=== PATIENT | female | born 1960 | race Caucasian/White ===

== ENCOUNTER → 2017-01-02 | Outpatient (CLI) | payer OTHER ==
[~2017-01-02] MED LIST: ASPCH81X PO; ATOR-24 PO; CHOL1000 PO; GLIM4TAB PO; LISI-725 PO; LORA10TA51 PO; NIAC500T11 PO; OMEG10007 PO; PRLSR20 PO; SITA100T3 PO; VENL150C PO
[2017-01-02 12:49] LABS: ESTIMATED AVERAGE GLUCOSE 177 mg/dl; HA1C FLAG Normal (Normal)
== END | disposition home or self-care (01) ==
LOC: C.LABPVFM 09:23
PROVIDERS: ATTEND Family Medicine
DX: E11.9 Type 2 diabetes mellitus without complications (principal)

== ENCOUNTER → 2017-02-25 | Outpatient (CLI) | payer OTHER ==
--- NOTE | 2017-02-25 16:30 | DIAGNOSTIC IMAGING REPORT ---
LUMBAR SPINE 2 OR 3 VIEWS CLINICAL HISTORY: LUMBAR PAIN WITH RADIATION DOWN BOTH LEGS pain COMPARISON STUDY: 06/29/2013 FINDINGS: Normal study. Vertebral body stature is normal. Disc spaces are well-preserved. IMPRESSION: Negative study Electronically signed by: Ervin Charles M.D. 02/25/2017 4:29 PM Dictated Date/Time: 02/25/2017 4:28 PM
== END | disposition home or self-care (01) ==
LOC: C.RAD 07:17
PROVIDERS: ATTEND Family Medicine
DX: M54.5 Low back pain (principal)

== ENCOUNTER → 2017-04-08 | Outpatient (CLI) | payer OTHER ==
[2017-04-08 13:17] LABS: ESTIMATED AVERAGE GLUCOSE 189 mg/dl; HA1C FLAG Normal (Normal)
== END | disposition home or self-care (01) ==
LOC: C.LABPVFM 08:47
PROVIDERS: ATTEND Family Medicine
DX: E11.9 Type 2 diabetes mellitus without complications (principal)

== ENCOUNTER → 2017-04-13 | Outpatient (CLI) | payer OTHER ==
[2017-04-13 13:34] LABS: CHOLESTEROL/HDL RATIO 4.4
== END | disposition home or self-care (01) ==
LOC: C.LABPVFM 08:18
PROVIDERS: ATTEND Family Medicine
DX: Z11.59 Encounter for screening for other viral diseases (principal); Z13.220 Encounter for screening for lipoid disorders

== ENCOUNTER → 2017-05-05 | Outpatient (CLI) | payer OTHER | END | disposition home or self-care (01) | LOC: C.MAMM 12:37 | PROVIDERS: ATTEND Family Medicine | DX: M85.851 Other specified disorders of bone density and structure, right thigh (principal); M85.852 Other specified disorders of bone density and structure, left thigh; R29.890 Loss of height ==

== ENCOUNTER → 2017-05-08 | Outpatient (CLI) | payer OTHER ==
--- NOTE | 2017-05-08 16:01 | MAMMOGRAPHY REPORT ---
BILATERAL DIGITAL SCREENING MAMMOGRAM TOMOSYNTHESIS WITH CAD: 05/08/2017 CLINICAL HISTORY: Routine screening. Patient has no complaints. TECHNIQUE: Breast tomosynthesis in addition to standard 2D mammography was performed. Current study was also evaluated with a Computer Aided Detection (CAD) system. COMPARISON: Comparison is made to exams dated: 04/25/2016 mammogram, 01/18/2015 mammogram, 08/25/2014 m ammogram, 01/12/2014 mammogram, and 01/07/2013 mammogram - [facility]. BREAST COMPOSITION: The tissue of both breasts is heterogeneously dense, which may obscure small mas ses. FINDINGS: No suspicious masses, calcifications, or areas of architectural distortion are noted in ei ther breast. There has been no significant interval change compared to prior exams. Scattered bilater al benign-appearing calcifications are not significantly changed. IMPRESSION: ACR BI-RADS CATEGORY 2: BENIGN There is no mammographic evidence of malignancy. A 1 year screening mammogram is recommended. The pa tient will receive written notification of the results. Approximately 10% of breast cancers are not detected with mammography. A negative mammographic report should not delay biopsy if a clinically suggestive mass is present. Katey Rolon M.D. /:05/08/2017 15:52:09 Doctor Of Naprapathy: Zenaida RUVALCABA(R)(M), [facility] letter sent: Normal 1/2 BI-RADS Code: ACR BI-RADS Category 2: Benign
== END | disposition home or self-care (01) ==
LOC: C.MAMM 08:16
PROVIDERS: ATTEND Family Medicine
DX: Z12.31 Encounter for screening mammogram for malignant neoplasm of breast (principal)

== ENCOUNTER → 2017-07-20 | Outpatient (CLI) | payer OTHER ==
[2017-07-20 13:12] LABS: ESTIMATED AVERAGE GLUCOSE 197 mg/dl; HA1C FLAG Normal (Normal)
== END | disposition home or self-care (01) ==
LOC: C.LABPVFM 09:59
PROVIDERS: ATTEND Family Medicine
DX: E11.9 Type 2 diabetes mellitus without complications (principal)

== ENCOUNTER → 2017-10-17 | Outpatient (CLI) | payer OTHER ==
[2017-10-17 13:18] LABS: CREATININE RANDOM URINE 66.7 mg/dl
[2017-10-17 13:22] LABS: BLOOD UREA NITROGEN 13 mg/dl (7-18); BUN/CREATININE RATIO 14.5 (10-20); CALCIUM 9.1 mg/dl (8.5-10.1); CARBON DIOXIDE 31 mmol/L (21-32); CHLORIDE 101 mmol/L (98-107); CREATININE 0.91 mg/dl (0.60-1.20); GLUCOSE 140 mg/dl (70-99); POTASSIUM 3.8 mmol/L (3.5-5.1); SODIUM 137 mmol/L (136-145)
[2017-10-17 13:28] LABS: ESTIMATED AVERAGE GLUCOSE 146 mg/dl; HA1C FLAG Normal (Normal)
[2017-10-17 13:29] LABS: RATIO 8.2 mcg/mg (0-30.0)
== END | disposition home or self-care (01) ==
LOC: C.LABPVFM 09:51
PROVIDERS: ATTEND Family Medicine
DX: E11.9 Type 2 diabetes mellitus without complications (principal)

== ENCOUNTER → 2017-10-26 | Outpatient (CLI) | payer OTHER ==
--- NOTE | 2017-10-26 09:35 | DIAGNOSTIC IMAGING REPORT ---
ABDOMEN LIMITED (US) HISTORY: 57 years-old Female SPELNIC CYST follow-up study to assess a splenic cyst COMPARISON: Abdominal ultrasound 07/18/2016 and 07/06/2015, CT 09/23/2014. TECHNIQUE: Multiple real-time sonographic images of the abdominal left upper quadrant were obtained assessing grayscale appearance, color and spectral flow FINDINGS: The spleen measures 11.0 cm in length. Normal arterial waveforms are seen within the splenic artery. The splenic artery and vein are patent. Cyst of the mid spleen is again seen, 3.9 x 3.9 x 3.6 cm, previously measuring 4.1 x 4.5 x 4.0 cm on study dated 07/18/2016. Previously noted punctate splenic calcifications suggesting granulomatous disease seen on CT study are not definitively seen. IMPRESSION: Decreased size of cystic lesion of the mid spleen measuring up to 3.9 cm, previously measuring up to 4.5 cm. Findings suggest benign etiology. The above report was generated using voice recognition software. It may contain grammatical, syntax or spelling errors. Electronically signed by: Derick Balbuena M.D. 10/26/2017 9:33 AM Dictated Date/Time: 10/26/2017 9:29 AM
== END | disposition home or self-care (01) ==
LOC: C.ULTR 09:01
PROVIDERS: ATTEND Surgery
DX: D73.4 Cyst of spleen (principal)

== ENCOUNTER → 2017-11-24 | Outpatient (CLI) | payer OTHER ==
--- NOTE | 2017-11-24 11:31 | DIAGNOSTIC IMAGING REPORT ---
LUMBAR SPINE 5 VIEWS HISTORY: LUMBAR PAIN WITH RADIATION DOWN LEGS COMPARISON: Lumbar spine 02/25/2017. FINDINGS: There is no fracture. No subluxation. Disc spaces are preserved. Mild facet degenerative changes seen within the lower lumbar spine. IMPRESSION: No fracture or subluxation within the lumbar spine. 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 Electronically signed by: Braxton Hobson M.D. 11/24/2017 11:30 AM Dictated Date/Time: 11/24/2017 11:27 AM
== END | disposition home or self-care (01) ==
LOC: C.RADPV 11:00
PROVIDERS: ATTEND Family Medicine
DX: M54.5 Low back pain (principal); M47.896 Other spondylosis, lumbar region

== ENCOUNTER 2023-04-29 06:01 | Inpatient (IN) ==
--- NOTE | 2023-04-03 13:53 | PAT Medication Instructions ---
Medication Instructions Date of Service April 03, 2023 Home Medications Medication Instructions Recorded diclofenac sodium 75 mg 75 mg PO BID #60 tabs 01/12/23 tablet,delayed release pregabalin 150 mg capsule 150 mg PO TID #90 caps 01/28/23 aspirin 81 mg tablet,delayed release 81 mg PO QAM cholecalciferol (vitamin D3) 25 mcg (1,000 unit) capsule 25 mcg PO HS loratadine 10 mg tablet (Claritin) 10 mg PO HS niacin 500 mg tablet 500 mg PO HS omega-3 fatty acids 1,000 mg capsule 1,000 mg PO HS pantoprazole 40 mg granules delayed-release for susp in packet (Protonix) 40 mg PO QAM insulin detemir U-100 100 unit/mL (3 mL) subcutaneous pen (Levemir FlexTouch U- 100 Insulin) 30 unit subcut HS semaglutide 0.25 mg or 0.5 mg (2 mg/1.5 mL) subcutaneous pen injector (Ozempic) 0.5 mg subcut WK rosuvastatin 40 mg tablet (Crestor) 40 mg PO HS duloxetine 60 mg capsule,delayed release (Cymbalta) 60 mg PO QAM venlafaxine 75 mg capsule,extended release 24 hr (Effexor XR) 75 mg PO QAM diclofenac sodium 75 mg tablet,delayed release 75 mg PO BID pregabalin 150 mg capsule 150 mg PO TID lisinopril 2.5 mg tablet 2.5 mg PO QAM Continue as directed semaglutide 0.25 mg or 0.5 mg (2 mg/1.5 mL) subcutaneous pen injector (Ozempic) 0.5 mg subcut WK ASK your surgeon for instructions diclofenac sodium 75 mg tablet,delayed release 75 mg PO BID STOP taking 2 weeks before surgery omega-3 fatty acids 1,000 mg capsule 1,000 mg PO HS STOP taking 48 hours before surgery niacin 500 mg tablet 500 mg PO HS DO NOT take the morning of surgery lisinopril 2.5 mg tablet 2.5 mg PO QAM Take morning of surgery With a small sip of water, OTHERWISE NOTHING TO EAT OR DRINK AFTER MIDNIGHT: aspirin 81 mg tablet,delayed release 81 mg PO QAM (unless surgeon directed otherwise) pantoprazole 40 mg granules delayed-release for susp in packet (Protonix) 40 mg PO QAM duloxetine 60 mg capsule,delayed release (Cymbalta) 60 mg PO QAM venlafaxine 75 mg capsule,extended release 24 hr (Effexor XR) 75 mg PO QAM pregabalin 150 mg capsule 150 mg PO TID Take evening before surgery cholecalciferol (vitamin D3) 25 mcg (1,000 unit) capsule 25 mcg PO HS loratadine 10 mg tablet (Claritin) 10 mg PO HS insulin detemir U-100 100 unit/mL (3 mL) subcutaneous pen (Levemir FlexTouch U- 100 Insulin) 30 unit subcut HS rosuvastatin 40 mg tablet (Crestor) 40 mg PO HS pregabalin 150 mg capsule 150 mg PO TID Other Notes If you have any questions please call us at [phone] or [phone] or [phone] or [phone]
--- NOTE | 2023-04-07 09:12 | Anesthesiology Consultation ---
Date of Service April 07, 2023 Assessment & Plan (1) Encounter for pre-operative examination: Plan - pt reports upcoming [facility] stress echo 04/15/23. - check BSG am DOS. - cardiology clearance 03/26/23 [facility]: "...preoperative abnormal EKG...L4-L5 decompression and fusion...dyspnea occurs with less than one flight of steps...multiple cardiac risk factors...risk stratification dobutamine stress echo..." Chart Review Chart Review: Pending: Refer to Additional Notes / Consult section and Patient seen in Pre Admission Testing Teaching & Discussion Pre-Anesthesia Teaching/Discussion Notes: Instructed NPO after midnight before surgery, except medications with 15 cc of water. Medication instructions provided according to the PAT guidelines. History Surgery Operation Date: 04/29/23 07:45 Proposed Procedures p L4-L5 Decompression and Fusion, Spinal Cord Monitoring - Brett Frias DO Height/Weight Height: 5 ft 5 in Weight: 84.7 kg Allergies Allergy/AdvReac Type Severity Reaction Status Date / Time Sulfa (Sulfonamide Allergy Mild Gastrointestinal Verified 04/02/23 10:15 Antibiotics) Upset Penicillins Allergy Unknown Hives Verified 04/02/23 10:15 Medications Home Medications Medication Instructions Recorded Confirmed Last Taken aspirin 81 mg tablet,delayed 81 mg PO QA 06/08/20 04/02/23 09/12/21 08:00 release cholecalciferol (vitamin D3) 25 25 mcg PO HS 06/08/20 04/02/23 09/11/21 21:00 mcg (1,000 unit) capsule loratadine 10 mg tablet (Claritin) 10 mg PO 06/08/20 04/02/23 09/11/21 21:00 niacin 500 mg tablet 500 mg PO 06/08/20 04/02/23 09/11/21 21:00 omega-3 fatty acids 1,000 mg 1,000 mg PO 06/08/20 04/02/23 09/11/21 21:00 capsule pantoprazole 40 mg granules 40 mg PO QAM 06/08/20 04/02/23 09/13/21 delayed-release for susp in packet (Protonix) pen needle, diabetic 32 gauge x #50 ea 06/08/20 01/28/23 Unknown 12/03" (BD Ultra-Fine Micro Pen Needle) insulin detemir U-100 100 unit/mL 30 unit subcut HS 06/25/21 04/02/23 09/12/21 08:00 (3 mL) subcutaneous pen (Levemir FlexTouch U-100 Insulin) semaglutide 0.25 mg or 0.5 mg (2 0.5 mg subcut WK 06/25/21 04/02/23 09/11/21 mg/1.5 mL) subcutaneous pen injector (Ozempic) rosuvastatin 40 mg tablet (Crestor) 40 mg PO HS 03/11/22 04/02/23 Unknown duloxetine 60 mg capsule,delayed 60 mg PO QAM 07/23/22 04/02/23 Unknown release (Cymbalta) venlafaxine 75 mg capsule,extended 75 mg PO QAM 07/23/22 04/02/23 Unknown release 24 hr (Effexor XR) diclofenac sodium 75 mg 75 mg PO BID #60 tabs 01/12/23 04/02/23 Unknown tablet,delayed release pregabalin 150 mg capsule 150 mg PO TID #90 caps 01/28/23 04/02/23 Unknown lisinopril 2.5 mg tablet 2.5 mg PO QAM 04/02/23 04/02/23 Unknown Past Medical History Medical History (Updated 04/07/23 @ 09:23 by Kathy Hernadez PA-C) Allergic rhinitis Back pain Depression Diabetes mellitus NIDDM Diabetic peripheral neuropathy feet GERD (gastroesophageal reflux disease) controlled, stable per pt HTN (hypertension) controlled, stable per pt Lumbar radicular pain Sacroiliitis Spinal stenosis, lumbar region, with neurogenic claudication Patient denies h/o stroke, seizures, heart attack, heart failure, blood clots or blood transfusions. Exercise / Class Metabolic Activity III < 4 Walking/Shop/Light housework (denies chest discomfort or shortness of breath with usual activities) Past Family History Family History Other No family history of adverse response to anesthesia Past Surgical History Surgical History History of colonoscopy History of dilatation and curettage Hx of bone marrow donation 2000 S/P arthroscopy of right shoulder S/P epidural steroid injection S/P right knee arthroscopy Past Anesthesia History No Hx of Anesthesia Complications and No Family Hx of Anesthesia Complications History of PONV No Hx of PONV and No Hx of Motion Sickness Social History Smoking Status: Never smoker Do You Dip or Chew Tobacco: No Hx Alcohol Use: No Hx Substance Use: No substance use type: does not use Review of Systems Snoring, denies witnessed apneas. Patient denies chest pain, shortness of breath, dyspnea on exertion, fever, chills, cough, wheezing, or palpitations. Physical Exam Vital Signs Vitals BP 108/70 P 78 TEMP 97.9 SP02 94% on RA RESP 17 Physical Full cervical extension range of motion without pain TMD 3.5 finger breadths Mallampati Score 2 Dentition: edentulous, full upper and lower dentures Lungs: normal respiratory effort. Clear throughout to auscultation, no adventitious breath sounds Cardiac: regular rate and rhythm, no murmurs noted Carotid arteries: negative bruit bilat Lab Results Anesthesia Preop Results Results Anesthesia Widget: WBC 4.63 K/ul (4.8-10.8) L 04/07/23 Hgb 13.7 g/dl (12.0-16.0) 04/07/23 Hct 42.4 % (37.0-47.0) 04/07/23 Plt 160 K/uL (130-400) 04/07/23 Na 142 mmol/L (136-145) 04/07/23 K 3.8 mmol/L (3.5-5.1) 04/07/23 Cl 106 mmol/L (98-107) 04/07/23 CO2 29 mmol/L (21-32) 04/07/23 BUN 16 mg/dl (6-23) 04/07/23 Creat 0.85 mg/dl (0.6-1.2) 04/07/23 Glucose Level 150 mg/dl (70-99(Fasting)) H 04/07/23 PT 11.4 Seconds (9.0-12.0) 04/07/23 PTT 30.0 Seconds (21.0-31.0) 04/07/23 INR 1.0 (0.9-1.1) 04/07/23 HA1c 7.4 % (4.5-5.6) H 03/11/23 Urine Color Dark Yellow 04/07/23 Urine Appearance Cloudy (Clear) A 04/07/23 Urine pH 5.5 (4.5-7.5) 04/07/23 Urine Specific [place] 1.033 (1.000-1.030) H 04/07/23 Urine Protein 1+ (Negative) H 04/07/23 Urine Glucose (UA) 1+ (Negative) H 04/07/23 Urine Ketones Negative (Negative) 04/07/23 Urine Blood Negative (Negative) 04/07/23 Urine Nitrite Negative (Negative) 04/07/23 Urine Bilirubin 1+ (Negative) H 04/07/23 Urine Urobilinogen Negative (Negative) 04/07/23 Urine Leukocyte Esterase Trace (Negative) H 04/07/23 Urine WBC (Auto) >30 /hpf (0-5) H 04/07/23 Urine RBC (Auto) 0-4 /hpf (0-4) 04/07/23 Urine Hyaline Casts (Auto) 10-30 /lpf (0-5) H 04/07/23 Urine Epithelial Cells (Auto) >30 /lpf (0-5) H 04/07/23 Urine Bacteria (Auto) Negative (Negative) 04/07/23 Blood Type O Positive 04/07/23 Antibody Screen NEGATIVE 04/07/23 Testing Laboratory Results Surgeon's office made aware of abnormal UA. Electrocardiogram Date: 03/26/23 NSR, rate 77 bpm Chest X-Ray Date: 04/07/23 Cardiomediastinal and hilar silhouettes are within normal limits. No pneumothorax, pleural effusion, airspace consolidation or pulmonary edema. De generative changes of the shoulders and spine. IMPRESSION: No acute process. COVID-19 Risk Screen Screening Information COVID-19 Screen Date: 04/07/23 Exposure 21 Days Family/Household +COVID Last 21 Days: No Exposure 10 Days Any COVID Exposure Last 10 Days: No Symptoms Last 10 Days Experienced COVID Sx Last 10 Days: No + COVID 0-90 Days COVID + in Last 0-90 Days: No
[~2023-04-29 06:01] MED LIST changes: +ACETAMINOPHEN 500 MG TAB PO SCH; -ASPCH81X PO; -ATOR-24 PO; -CHOL1000 PO; +CLINDAMYCIN/D5W 900 MG/50 ML BAG IV SCH; +GABAPENTIN 300 MG CAP PO SCH; -GLIM4TAB PO; -LISI-725 PO; -LORA10TA51 PO; +LR 15ML/HR IV SCH; -NIAC500T11 PO; -OMEG10007 PO; -PRLSR20 PO; -SITA100T3 PO; -VENL150C PO
[2023-04-29] MEDS ORDERED: MIDAZOLAM HCL 1 MG/ML 2ML VIAL ONE (06:51)
[2023-04-29] MEDS ORDERED: fentaNYL citrate PF 100 MCG/2 ML VIAL ONE (06:51)
[2023-04-29] MEDS ORDERED: PROPOFOL IV EMULSION 10 MG/ML 20 ML VIAL IV ONE (06:51)
[2023-04-29] MEDS ORDERED: DEXAMETHASONE SOD INJ 4 MG/ML VIAL ONE (06:51)
[2023-04-29] MEDS ORDERED: LIDOCAINE 2% 2 ML VIAL/AMP(20MG/ML) INFIL ONE (06:51)
[2023-04-29] MEDS ORDERED: ONDANSETRON INJ 2 MG/ML 2 ML VIAL ONE (06:51)
[2023-04-29] MEDS ORDERED: ROCURONIUM BROMIDE 10 MG/ML 5 ML VIAL IV ONE (06:51)
[2023-04-29] MEDS ORDERED: ONDANSETRON INJ 2 MG/ML 2 ML VIAL IV PRN ×2 (07:11→10:39)
[2023-04-29] MEDS ORDERED: PROMETHAZINE HCL 6.25 MG in SODIUM CHLORIDE 0.9% 50 ML IV PRN (07:11)
[2023-04-29] MEDS ORDERED: ATROPINE SULFATE 0.1 MG/ML 10ML SYR IV PRN (07:11)
[2023-04-29] MEDS ORDERED: HYDROmorphone INJ 1 MG/ML SYRINGE IV PRN ×2 (07:11→10:39)
[2023-04-29] MEDS ORDERED: BUPIVACAINE/EPINEPHRINE 0.25% 1:200,000 30 ML VIAL ONE (07:19)
[2023-04-29] MEDS ORDERED: ceFAZolin 330 MG/ML 1 GM VIAL ONE (07:20)
--- NOTE | 2023-04-29 07:38 | History & Physical Bridge Note ---
Date of Service April 29, 2023 History & Physical Bridge Note I have examined the patient, reviewed the History & Physical and in the interval since the performance of the History & Physical I have noted the following changes of clinical significance: no changes noted
--- NOTE | 2023-04-29 07:40 | History & Physical Report ---
Date of Service April 29, 2023 Assessment & Plan (1) Neurogenic claudication due to lumbar spinal stenosis: Plan: L4-L5 decompression and fusion History of Present Illness Chief Complaint: Back and leg pain Primary Care Provider: Polly Herrera DO This is a 63-year-old female who presents with chronic persistent back and leg pain after failing course of nonoperative care is here for surgical invention. Allergies Allergy/AdvReac Type Severity Reaction Status Date / Time Sulfa (Sulfonamide Allergy Mild Gastrointestinal Verified 04/29/23 06:28 Antibiotics) Upset Penicillins Allergy Unknown Hives Verified 04/29/23 06:28 Home Medications Medication Instructions Recorded Confirmed Type aspirin 81 mg tablet,delayed 81 mg PO QAM 06/08/20 04/29/23 History release cholecalciferol (vitamin D3) 25 25 mcg PO HS 06/08/20 04/29/23 History mcg (1,000 unit) capsule loratadine 10 mg tablet (Claritin) 10 mg PO HS 06/08/20 04/29/23 History niacin 500 mg tablet 500 mg PO HS 06/08/20 04/29/23 History omega-3 fatty acids 1,000 mg 1,000 mg PO HS 06/08/20 04/29/23 History capsule pantoprazole 40 mg granules 40 mg PO QAM 06/08/20 04/29/23 History delayed-release for susp in packet (Protonix) pen needle, diabetic 32 gauge x #50 ea 06/08/20 01/28/23 History 1/4" (BD Ultra-Fine Micro Pen Needle) insulin detemir U-100 100 unit/mL 30 unit subcut HS 06/25/21 04/29/23 History (3 mL) subcutaneous pen (Levemir FlexTouch U-100 Insulin) semaglutide 0.25 mg or 0.5 mg (2 0.5 mg subcut WK 06/25/21 04/29/23 History mg/1.5 mL) subcutaneous pen injector (Ozempic) rosuvastatin 40 mg tablet (Crestor) 40 mg PO HS 03/11/22 04/29/23 History duloxetine 60 mg capsule,delayed 60 mg PO QAM 07/23/22 04/29/23 History release (Cymbalta) venlafaxine 75 mg capsule,extended 75 mg PO QAM 07/23/22 04/29/23 History release 24 hr (Effexor XR) diclofenac sodium 75 mg 75 mg PO BID #60 tabs 01/12/23 04/29/23 Rx tablet,delayed release pregabalin 150 mg capsule 150 mg PO TID #90 caps 01/28/23 04/29/23 Rx lisinopril 2.5 mg tablet 2.5 mg PO QAM 04/02/23 04/29/23 History Past Med/Surg History Medical History (Updated 04/29/23 @ 07:39 by Brett Frias DO) Allergic rhinitis Back pain Depression Diabetes mellitus NIDDM Diabetic peripheral neuropathy feet GERD (gastroesophageal reflux disease) controlled, stable per pt HTN (hypertension) controlled, stable per pt Lumbar radicular pain Sacroiliitis Spinal stenosis, lumbar region, with neurogenic claudication Surgical History History of colonoscopy History of dilatation and curettage Hx of bone marrow donation 2000 S/P arthroscopy of right shoulder S/P epidural steroid injection S/P right knee arthroscopy Family History Other No family history of adverse response to anesthesia Social History Smoking Status: Never smoker Second Hand Exposure: No; Do You Dip or Chew Tobacco: No; Tobacco Cessation Education Requested by Patient: No Hx Alcohol Use: No Hx Substance Use: No Preferred Language: [place] Communication Ability: Effective Visual Impairment: Limited Hearing Ability: Normal Audio Visual Production Specialist Required: No Beliefs That Will Affect Care: None marital status: Current Living Situation: Spouse and Family current occupational status: retired Other Information That Helps Us Care for You: No Feels Safe at Home: Yes Safety Concerns: Feels Safe At This Time Assistive Devices: Denture - Upper and Glasses Physical Exam Physical Exam: Patient is alert and oriented Heart regular rhythm Lungs clear Results & Data Results & Data Vital Signs (Past 12 Hours) Vital Signs Temp Pulse Resp BP Pulse Ox O2 Del Method 04/29/23 06:36 36.6 C 78 20 116/77 98 Room Air
[2023-04-29] MEDS ORDERED: GLYCOPYRROLATE 0.2 MG/ML VIAL ONE (08:54)
[2023-04-29] MEDS ORDERED: NEOSTIGMINE METHYLSULFATE 1 MG/ML 10ML VIAL ONE (08:54)
[2023-04-29] MEDS ORDERED: FLOSEAL HEMOSTATIC MATRIX 10ML TOP ONE (09:00)
--- NOTE | 2023-04-29 09:10 | Operative Report ---
Post Operative Report Pre & Post Diagnosis Operation Date: 04/29/23 07:45 Pre-Op Diagnosis: Lumbar spinal stenosis with neurogenic claudication Spondylolisthesis L4-L5 Post-Op Diagnosis: Same I identified the patient and participated in the time-out.: Yes Procedure Operation Date: 04/29/23 07:45 Actual Procedures #1 lumbar decompression bilateral medial facetectomies and foraminotomies L3-L4 L4-L5. #2 posterior spinal fusion L4-5. #3 placement posterior instrumentation L4-5. #4 interbody fusion L4-5. #5 placement of Spira 12 x 26 mm cage at L4- L5. #6 placement locally harvested morselized autograft in the posterior gutters. #7 placement of I factor combined with V toss in the interbody space and posterior gutters. Surgeon Brett Frias, Skin Care Specialist Migdalia Heath Estimated Blood Loss 150 Findings Consistent with Post-Op Diagnosis Specimens None Indications This is 63-year-old female presents above-mentioned diagnosis of failed course of nonoperative care is here for surgical invention. Description of Procedure Patient was met with identified informed consent obtained. Patient was then taken to the operative suite underwent a patient placed in a prone position jacks table top Dain frame. All bony prominences well-padded eyes inspected to ensure no external pressure placed upon the. This point the lumbar spine was prepped and draped in a sterile fashion. Sharp dissection with assistance of Bovie cautery form down to and exposing the lamina and transverse processes of L4-L5. From caudal cephalad fashion complete laminectomy of L4 partial laminectomy of L3 was performed including bilateral medial facetectomies and foraminotomies addressing severe spinal stenosis as well as a massive facet cyst on the right. Pedicle screws then placed in L4-5 bilaterally with assistance of fluoroscopy and appropriate sized ana placed. Bilateral transforaminal approach and right complete discectomy performed endplates curetted to subcortical bleeding bone and a 12 x 26 mm Spira cage with I factor tapped in position. Rods were then locked in final position bilaterally. The transverse processes of L4-5 burred to subcortically bone. I factor combined with V toss and locally harvested morselized autograft placed in the posterior gutters. 15 round HOPE drain inserted. The incision was then closed with 1 Vicryl to fascia 2-0 Vicryl subcutaneously and 4 Monocryl for final skin closure. Steri-Strips sterile dressings placed. Patient waken taken to PACU stable condition. Please note spinal cord monitoring utilized at the procedure no changes noted. Lastly Migdalia Heath present at the entire procedure involved in patient positioning complex portion of the surgery and final closure. I attest to the content of the Intraoperative Record and any orders documented therein. Any exceptions are noted below.
--- NOTE | 2023-04-29 09:14 | Fluoroscopy Report ---
INTRAOPERATIVE RADIOGRAPHS CLINICAL HISTORY: L4-L5 spinal fusion. Fluoro time: 13 seconds Ka,r: 9.86 mGy FINDINGS: 2 spot fluoroscopic views of the lumbar spine are presented. There has been discectomy at L 4-L5 with laminectomy and posterior fusion at this level. Interpedicular screws are in place. The ort hopedic hardware appears intact. IMPRESSION: Intraoperative images from lumbar spinal fusion surgery as above. Electronically signed by: Lasha Scott M.D. 04/29/2023 9:13 AM
[2023-04-29] MEDS ORDERED: diphenhydrAMINE Capsule 25 MG CAP PO PRN (10:39)
[2023-04-29] MEDS ORDERED: ONDANSETRON 4 MG OD TAB PO PRN (10:39)
[2023-04-29] MEDS ORDERED: LORazepam 2 MG/1 ML VIAL IV PRN (10:39)
[2023-04-29] MEDS ORDERED: bisacodyL 10 MG SUPP PR PRN (10:39)
[2023-04-29] MEDS ORDERED: ACETAMINOPHEN 1,000 MG/100 ML VIAL IV PRN (10:39)
[2023-04-29] MEDS ORDERED: hydrOXYzine HCl 25 MG TAB PO PRN (10:39)
[2023-04-29] MEDS ORDERED: ACETAMINOPHEN 500 MG TAB PO PRN (10:39)
[2023-04-29] MEDS ORDERED: ALUMINUM/MAGNESIUM SUSP 30 ML UDC PO PRN (10:39)
[2023-04-29] MEDS ORDERED: PROMETHAZINE HCL 12.5 MG in SODIUM CHLORIDE 0.9% 50 ML IV PRN (10:39)
[2023-04-29] MEDS ORDERED: PHARMACY GLYCEMIC MGMT CONSULT PRN (10:39)
[2023-04-29] MEDS ORDERED: METOCLOPRAMIDE HCL INJ 5 MG/ML 2 ML VIAL IV PRN (10:39)
[2023-04-29] MEDS ORDERED: FAMOTIDINE 20 MG TAB PO PRN (10:39)
[2023-04-29] MEDS ORDERED: DO NOT ADMINISTER PNEUMOCOCCAL VACCINE PRN (10:39)
[2023-04-29] MEDS ORDERED: traMADol HCL 50 MG TABLET PO PRN (10:39)
[2023-04-29] MEDS ORDERED: DO NOT ADMINISTER FLU VACCINE PRN (10:39)
[2023-04-29] MEDS ORDERED: NALOXONE HCL 0.4 MG/1 ML VIAL/CARP IV PRN (10:39)
[2023-04-29] MEDS ORDERED: SOD PHOSPHATE/SOD BIPHOSPHATE ENEMA 132 ML BTL PR PRN (10:39)
[2023-04-29] MEDS ORDERED: LORazepam 0.5 MG TAB PO PRN (10:39)
[2023-04-29] MEDS ORDERED: MAGNESIUM HYDROXIDE SUSP 30 ML UDC PO PRN (10:39)
--- NOTE | 2023-04-29 11:10 | Consultation ---
Date of Consultation April 29, 2023 Assessment & Plan (1) Neurogenic claudication due to lumbar spinal stenosis: (2) Diabetes mellitus: (3) HTN (hypertension): (4) Depression: (5) HLD (hyperlipidemia): Plan This is a 63-year-old female who has significant past medical history of T2DM with long-term insulin use, HTN, HLD, GERD, depression who presents for elective lumbar decompression fusion by Dr. Frias. Neurogenic claudication due to lumbar spinal stenosis Status post L4-L5 lumbar decompression fusion by Dr. Frias, POD #0 EBL 150ml tolerated procedure well Pain/wound management per orthopedics Activity, therapy and diet as directed by orthopedics Encourage incentive spirometry, wean oxygen as able Monitor hemoglobin postoperatively, preop 13 T2DM A1c February 2023 7.4 Glycemic pharmacy consulted Lantus/NovoLog per protocol Appreciate pharmacy assistance also on ozempic qfriday HTN BP on lower side postoperatively, hold lisinopril and resume as able Hyperlipidemia Continue statin Depression Continue Cymbalta DVT prophylaxis: Per primary Dispo: Per primary PCP: Dr. Herrera FULL CODE Pt was seen and examined in collaboration with Dr. Iglesias, please see addendum Thank you for this consultation. We will follow the patient with you during their hospital stay. You can reach a member of the [facility] Hospitalist Team 22/06 via hospitalist role on tiger text. Supervising Physician Co-Signing Physician Notes 63-year-old female who has significant past medical history of T2DM with long- term insulin use, HTN, HLD, GERD, depression who presents for elective lumbar decompression fusion by Dr. Frias. Patient has history of T2DM controlled with insulin. Patient is for post op management . doing well at this time. not in pain Pharmacy management for diabetes. Reviewed all systems as noted in H/P , rest reviewed as negative History of Present Illness Requesting Physician: Dr. Frias Reason for Consultation: Dr. Frias Attending Physician: Brett Frias, History of Present Illness This is a 63-year-old female who has significant past medical history of T2DM with long-term insulin use, HTN, HLD, GERD, depression who presents for elective lumbar decompression fusion by Dr. Frias. Patient has history of T2DM controlled with insulin. Her last A1c on March 11, 2023 was 7.4. She also has history of HTN controlled outpatient by lisinopril. Postoperatively patient feels well. She denies any postoperative nausea or vomiting. She is currently on 2 L of oxygen saturating well. She denies any lightheadedness, dizziness, fever, chills, sweats, chest pain, shortness of breath or abdominal pain. She is currently tolerating sips of water. is at bedside. Currently has incisional back pain and very minimal right-sided numbness. Prior to procedure she had significant pain down her right lower extremity with numbness and tingling. Allergies Allergy/AdvReac Type Severity Reaction Status Date / Time Sulfa (Sulfonamide Allergy Mild Gastrointestinal Verified 04/29/23 06:28 Antibiotics) Upset Penicillins Allergy Unknown Hives Verified 04/29/23 06:28 Home Medications Medication Instructions Recorded Confirmed Type aspirin 81 mg tablet,delayed 81 mg PO QAM 06/08/20 04/29/23 History release cholecalciferol (vitamin D3) 25 25 mcg PO HS 06/08/20 04/29/23 History mcg (1,000 unit) capsule loratadine 10 mg tablet (Claritin) 10 mg PO HS 06/08/20 04/29/23 History niacin 500 mg tablet 500 mg PO HS 06/08/20 04/29/23 History omega-3 fatty acids 1,000 mg 1,000 mg PO HS 06/08/20 04/29/23 History capsule pantoprazole 40 mg granules 40 mg PO QAM 06/08/20 04/29/23 History delayed-release for susp in packet (Protonix) pen needle, diabetic 32 gauge x #50 ea 06/08/20 01/28/23 History 1/4" (BD Ultra-Fine Micro Pen Needle) insulin detemir U-100 100 unit/mL 25 unit subcut HS 06/25/21 04/29/23 History (3 mL) subcutaneous pen (Levemir FlexTouch U-100 Insulin) semaglutide 0.25 mg or 0.5 mg (2 0.5 mg subcut WK 06/25/21 04/29/23 History mg/1.5 mL) subcutaneous pen injector (Ozempic) rosuvastatin 40 mg tablet (Crestor) 40 mg PO HS 03/11/22 04/29/23 History duloxetine 60 mg capsule,delayed 60 mg PO QAM 07/23/22 04/29/23 History release (Cymbalta) venlafaxine 75 mg capsule,extended 75 mg PO QAM 07/23/22 04/29/23 History release 24 hr (Effexor XR) diclofenac sodium 75 mg 75 mg PO BID #60 tabs 01/12/23 04/29/23 Rx tablet,delayed release pregabalin 150 mg capsule 150 mg PO TID #90 caps 01/28/23 04/29/23 Rx lisinopril 2.5 mg tablet 2.5 mg PO QAM 04/02/23 04/29/23 History oxycodone 5 mg tablet 5 mg PO Q6H PRN pain #30 tabs 04/29/23 Rx tramadol 50 mg tablet 50 mg PO Q6H PRN pain, moderate 04/29/23 Rx #30 tabs Patient History Medical History (Updated 04/29/23 @ 11:06 by Corinne Hilario PA-C) Allergic rhinitis Back pain Depression Diabetes mellitus NIDDM Diabetic peripheral neuropathy feet GERD (gastroesophageal reflux disease) controlled, stable per pt HLD (hyperlipidemia) HTN (hypertension) controlled, stable per pt Lumbar radicular pain Sacroiliitis Spinal stenosis, lumbar region, with neurogenic claudication Surgical History History of colonoscopy History of dilatation and curettage Hx of bone marrow donation 2000 S/P arthroscopy of right shoulder S/P epidural steroid injection S/P right knee arthroscopy Family History Other No family history of adverse response to anesthesia Social History Smoking Status: Never smoker Second Hand Exposure: No; Do You Dip or Chew Tobacco: No; Tobacco Cessation Education Requested by Patient: No Hx Alcohol Use: No Hx Substance Use: No Preferred Language: Guyanese Communication Ability: Effective Visual Impairment: Limited Hearing Ability: Normal Senior Care Manager Required: No Beliefs That Will Affect Care: None marital status: Current Living Situation: Spouse and Family current occupational status: retired Other Information That Helps Us Care for You: No Feels Safe at Home: Yes Safety Concerns: Feels Safe At This Time Assistive Devices: Denture - Upper and Glasses Review of Systems Review of Systems: All systems reviewed & are unremarkable except as noted in HPI & below Physical Exam Physical Exam: Constitutional: WD/WN, vitals as above, NAD, sitting up in bed, pleasant, conversing easily Head: Normocephalic, Atraumatic Eyes: PERRL, conjunctivae normal, anicteric sclerae ENMT: external ear and nose normal, oropharynx normal Neck: trachea midline, no thyromegaly normal visual inspection Respiratory: normal respiratory effort, lungs clear to auscultation, no wheeze, rales, rhonchi. Normal insp/exp effort, no accessory muscle use Cardiovascular: RRR, no murmur, no edema, SCDs in place vessels: no JVD or carotid bruit Chest: normal inspection of chest Abdomen: normal bowel sounds, soft, nontender, no hepatosplenomegaly Musculoskeletal: no cyanosis or clubbing, active range of motion x4, lumbar dressing CDI, HOPE drain with serosanguineous drainage Skin: no rashes, warm and dry normal turgor Neurologic: PERRL, EOMI, accommodation nl, no face palsy, no dysarthria CN's II-XI intact bilaterally and moves all extremities Psychiatric: A+Ox3, euthymic affect Lymphatic: no cervical or axillary lymphadenopathy : deferred Results & Data Vital Signs (Past 12 Hours) Vital Signs Temp Pulse Pulse Pulse Resp BP Pulse Ox 04/29/23 10:40 36.4 C L 71 14 104/65 96 04/29/23 10:30 69 20 108/60 95 04/29/23 10:20 67 14 112/61 94 04/29/23 10:10 69 20 116/59 L 93 04/29/23 10:00 36.5 C 65 18 109/60 93 04/29/23 09:50 70 20 116/59 L 93 04/29/23 09:40 77 16 116/61 95 04/29/23 09:30 77 20 105/70 93 04/29/23 09:27 36.0 C L 82 16 128/71 97 04/29/23 06:36 36.6 C 78 20 116/77 98 O2 Del Method O2 Flow Rate 04/29/23 10:40 Nasal Cannula 2 04/29/23 10:30 Nasal Cannula 2 04/29/23 10:20 Nasal Cannula 2 04/29/23 10:10 Nasal Cannula 2 04/29/23 10:00 Nasal Cannula 2 04/29/23 09:50 Nasal Cannula 2 04/29/23 09:40 Oxymask 2 04/29/23 09:30 Oxymask 6 04/29/23 09:27 Oxymask 6 04/29/23 06:36 Room Air Laboratory Results Preop lab work on 04/07/2023 revealed H&H 13.7 and 42.4, DBC 4.63, platelet 160, sodium 142, K3.8, BUN 60, creatinine 0.85, glucose 150, urinalysis negative for bacteria, SARS-CoV-2 negative Diagnostic Findings Lumbar Spine X-Ray 04/29/23 07:45 INTRAOPERATIVE RADIOGRAPHS CLINICAL HISTORY: L4-L5 spinal fusion. Fluoro time: 13 seconds Ka,r: 9.86 mGy FINDINGS: 2 spot fluoroscopic views of the lumbar spine are presented. There has been discectomy at L4-L5 with laminectomy and posterior fusion at this level. Interpedicular screws are in place. The orthopedic hardware appears intact. IMPRESSION: Intraoperative images from lumbar spinal fusion surgery as above. Electronically signed by: Lasha Scott M.D. 04/29/2023 9:13 AM Preop chest x-ray showed no acute process on 04/07/2023 Medications Administered Current Inpatient Medications Acetaminophen (Acetaminophen 500 Mg Tab) 1,000 mg PO PREOP PRISCA Stop: 04/29/23 18:00 Last Admin: 04/29/23 06:56 Dose: 1,000 mg Acetaminophen (Acetaminophen 500 Mg Tab) 1,000 mg PO Q8H PRN PRN Reason: MILD Pain Scale 1,2,3 & Pre PT Stop: 05/29/23 10:38 Al Hydrox/Mg Hydrox/Simethicone (Aluminum/Magnesium Susp 30 Ml Udc) 30 ml PO Q6H PRN PRN Reason: Dyspepsia Stop: 05/29/23 10:38 Aspirin (Aspirin 81 Mg Ectab) 81 mg PO QAM PRISCA Stop: 05/30/23 08:59 Bisacodyl (Bisacodyl 10 Mg Supp) [address] DAILY PRN PRN Reason: Constipation Stop: 05/29/23 10:38 Diphenhydramine HCl (Diphenhydramine Capsule 25 Mg Cap) 25 mg PO Q6H PRN PRN Reason: Allergic Rhinitis/Insomnia Stop: 05/29/23 10:38 Duloxetine HCl (Duloxetine Hcl 60 Mg Cap) 60 mg PO QAM PRISCA Stop: 05/30/23 08:59 Famotidine (Famotidine 20 Mg Tab) 20 mg PO Q12H PRN PRN Reason: Dyspepsia Stop: 05/29/23 10:38 Gabapentin (Gabapentin 300 Mg Cap) 300 mg PO PREOP PRISCA Stop: 04/29/23 18:00 Last Admin: 04/29/23 06:56 Dose: 300 mg Hydromorphone HCl (Hydromorphone Inj 0.5 Mg/0.5 Ml Syr) 0.5 mg IV Q3H PRN PRN Reason: MODERATE Pain (Scale 4,5,6) & Pre PT Stop: 05/13/23 10:38 Hydromorphone HCl (Hydromorphone Inj 1 Mg/Ml Syringe) 1 mg IV Q3H PRN PRN Reason: SEVERE Pain (Scale 7,8,9,10) Stop: 05/13/23 10:38 Hydroxyzine HCl (Hydroxyzine Hcl 25 Mg Tab) 25 mg PO Q8H PRN PRN Reason: Anxiety Stop: 05/29/23 10:38 Lactated Ringer's (Lr) 1,000 mls @ 15 mls/hr IV .Q24H PRISCA Stop: 04/30/23 05:59 Last Infusion: 04/29/23 07:43 Dose: Infused Clindamycin Phosphate (Cleocin/D5w) 900 mg in 50 mls @ 100 mls/hr IV PREOP PRISCA; Protocol Stop: 04/29/23 18:00 Last Admin: 04/29/23 07:43 Dose: 100 mls/hr Sodium Chloride (Nss 1000ml) 1,000 mls @ 100 mls/hr IV .Q10H PRISCA Stop: 05/29/23 10:38 Promethazine HCl 12.5 mg/ (Sodium Chloride) 50.5 mls @ 202 mls/hr IV Q6H PRN PRN Reason: Nausea &/or Vomiting Stop: 05/29/23 10:38 Acetaminophen (Ofirmev) 1,000 mg in 100 mls @ 400 mls/hr IV Q8H PRN PRN Reason: Pain Rating 1-3 & Pre PT Stop: 04/30/23 10:40 Clindamycin Phosphate (Cleocin/D5w) 600 mg in 50 mls @ 100 mls/hr IV Q8H PRISCA Stop: 04/29/23 23:44 Dexamethasone 6 mg/ Syringe 1.5 mls @ 1 mls/min IV DAILY [facility] Stop: 05/02/23 09:02 Influenza Virus Vaccine Quadrival (Do Not Administer Flu Vaccine) 1 each N/A PRN PRN PRN Reason: Notification Stop: 05/29/23 10:38 Lisinopril (Lisinopril 2.5 Mg Tab) 2.5 mg PO QAM PRISCA Stop: 05/30/23 08:59 Loratadine (Loratadine 10 Mg Tab) 10 mg PO HS [facility] Stop: 05/29/23 20:59 Lorazepam (Lorazepam 0.5 Mg Tab) 0.5 mg PO Q8H PRN PRN Reason: Sedation/Anxiety Stop: 05/29/23 10:38 Lorazepam (Lorazepam 2 Mg/1 Ml Vial) 0.5 mg IV Q8H PRN PRN Reason: Sedation/Anxiety Stop: 05/29/23 10:38 Magnesium Hydroxide (Magnesium Hydroxide Susp 30 Ml Udc) 30 ml PO Q24H PRN PRN Reason: Constipation Stop: 05/29/23 10:38 Metoclopramide HCl (Metoclopramide Hcl Inj 5 Mg/Ml 2 Ml Vial) 10 mg IV Q6H PRN PRN Reason: Nausea &/or Vomiting Stop: 05/29/23 10:38 Miscellaneous Information (Pharmacy Glycemic Mgmt Consult) 1 each N/A UD PRN PRN Reason: Consult Stop: 05/29/23 10:38 Naloxone HCl (Naloxone Hcl 0.4 Mg/1 Ml Vial/Carp) 0.1 mg IV Q5M PRN PRN Reason: Oversedation/Resp depression Stop: 05/29/23 10:38 Niacin (Niacin 500 Mg Tab) 500 mg PO HS [facility] Stop: 05/29/23 20:59 Ondansetron HCl (Ondansetron Inj 2 Mg/Ml 2 Ml Vial) 4 mg IV Q6H PRN PRN Reason: Nausea &/or Vomiting Stop: 05/29/23 10:38 Ondansetron HCl (Ondansetron 4 Mg Od Tab) 4 mg PO Q6H PRN PRN Reason: Nausea Stop: 05/29/23 10:38 Oxycodone HCl (Oxycodone Hcl Ir 5 Mg Tab (Immediate Release)) 5 - 10 mg PO Q4H PRN PRN Reason: Pain & Pre PT Stop: 05/13/23 10:38 Pantoprazole Sodium (Pantoprazole 40 Mg Tab) 40 mg PO QAM PRISCA Stop: 05/30/23 08:59 Pneumococcal Polyvalent Vaccine (Do Not Administer Pneumococcal Vaccine) 1 each N/A PRN PRN PRN Reason: Notification Stop: 05/29/23 10:38 Polyethylene Glycol (Polyethylene (Miralax) 17 Gm Pack) 17 gm PO Q6 PRISCA Stop: 05/30/23 05:59 Pregabalin (Pregabalin 150 Mg Cap) 150 mg PO TID PRISCA Stop: 05/29/23 13:59 Rosuvastatin Calcium (Rosuvastatin Calcium 20 Mg Tab) 40 mg PO HS PRISCA Stop: 05/29/23 20:59 Senna/Docusate Sodium (Docusate Sodium/Senna 50/8.6mg Tab) 2 tab PO HS PRISCA Stop: 05/29/23 20:59 Sodium Biphosphate/Sodium Phosphate (Sod Phosphate/Sod Biphosphate Enema 132 Ml Btl) [address] ONE PRN PRN Reason: Constipation Stop: 05/29/23 10:38 Tramadol HCl (Tramadol Hcl 50 Mg Tablet) 50 - 100 mg PO Q4H PRN PRN Reason: Moderate-Severe pain & Pre PT Stop: 05/29/23 10:38 Venlafaxine HCl (Venlafaxine Hcl Xr 75 Mg Capxr) 75 mg PO QAM PRISCA Stop: 05/30/23 08:59 Vitamin D (Cholecalciferol 1,000 Units 25 Mcg Tab) 1,000 units PO HS PRISCA Stop: 05/29/23 20:59 ECG Additional Comments: EKG on 03/26/2023 were normal sinus rhythm, 77 bpm, QTc [address] or T wave change. She underwent dobutamine stress echo on 04/15/2023 which was negative for inducible ischemia, proximal ascending thoracic aorta mildly enlarged at 4 cm
[2023-04-29] MEDS: SODIUM CHLORIDE 0.9% 1000ML 1,000 ML IV SCH ×2 (11:13→21:36)
[2023-04-29] MEDS ORDERED: GLUCAGON FOR INJ 1 MG VIAL IM PRN (11:45)
[2023-04-29] MEDS ORDERED: CARBOHYDRATES FOR HYPOGLYCEMIA PO PRN (11:45)
[2023-04-29] MEDS ORDERED: GLUCOSE 40% GEL 15 GM TUBE PO PRN (11:45)
[2023-04-29] MEDS ORDERED: DEXTROSE 50% 50 ML SYRINGE IV PRN (11:45)
[2023-04-29] MEDS ORDERED: GLUCOSE 10 TAB/TUBE PO PRN (11:45)
--- NOTE | 2023-04-29 12:00 | Anesthesiology Progress Note ---
Date of Service April 29, 2023 Anesthesia Post Procedure Vital Signs Vital Signs: Temp Pulse Pulse Pulse Resp BP Pulse Ox 04/29/23 11:33 36.5 C 67 17 114/72 99 04/29/23 11:10 36.5 C 68 14 114/70 95 04/29/23 10:40 36.4 C L 71 14 104/65 96 04/29/23 10:30 69 20 108/60 95 04/29/23 10:20 67 14 112/61 94 04/29/23 10:10 69 20 116/59 L 93 04/29/23 10:00 36.5 C 65 18 109/60 93 04/29/23 09:50 70 20 116/59 L 93 04/29/23 09:40 77 16 116/61 95 04/29/23 09:30 77 20 105/70 93 04/29/23 09:27 36.0 C L 82 16 128/71 97 04/29/23 06:36 36.6 C 78 20 116/77 98 O2 Del Method O2 Flow Rate 04/29/23 11:33 Nasal Cannula 2 04/29/23 11:10 Nasal Cannula 2 04/29/23 10:40 Nasal Cannula 2 04/29/23 10:30 Nasal Cannula 2 04/29/23 10:20 Nasal Cannula 2 04/29/23 10:10 Nasal Cannula 2 04/29/23 10:00 Nasal Cannula 2 04/29/23 09:50 Nasal Cannula 2 04/29/23 09:40 Oxymask 2 04/29/23 09:30 Oxymask 6 04/29/23 09:27 Oxymask 6 04/29/23 06:36 Room Air Pain Intensity Back: Pain Intensity: 7 Transfer of Care Handoff Completed per policy Notes Mental Status: alert / awake / arousable Patient Amnestic to Procedure: Yes Nausea / Vomiting: adequately controlled Pain: adequately controlled Airway Patency, RR, SpO2: stable & adequate BP & HR: stable & adequate Hydration State: stable & adequate Anesthetic Complications: no major complications apparent
[2023-04-29] MEDS: HYDROmorphone INJ 0.5 MG/0.5 ML SYR IV PRN ×2 (12:13→23:48)
[2023-04-29] MEDS: INSULIN ASPART PER UNIT CHARGE SC SCH ×3 (12:53→21:31)
--- NOTE | 2023-04-29 12:54 | Pharmacy Report ---
Pharmacy Glycemic Short Note 2 - Date of Service April 29, 2023 - Glycemic Short BSG Results (Last 24 hours): 04/29/23 04/29/23 04/29/23 06:24 09:29 11:58 POC Glucose 162 H 158 H 155 H OUTPATIENT ANTIDIABETIC REGIMEN: * Detemir 25 units SQ HS (took full dose last night 04/28) * Ozempic 0.5mg SQ weekly (due for dose tomorrow, told patient to resume when she goes home, will cover with NovoLog as inpatient) * A1c 7.4% 03/11/23 ASSESSMENT: * 63 year old female type 2 DM on medications as above, s/p lumbar decompression/fusion. * Patient received Dexamethasone 4mg IV in OR, and will have 6mg IV x 3 days starting tomorrow. * Increase home dose of Lantus per blood sugar. * Tight CF/CR at this time, titrate to goal blood sugar. PLAN FOR INPATIENT GLYCEMIC CONTROL: * Hold outpatient diabetes medications * Basal insulin * Lantus SQ HS: BSG < 140 - 25 units, BSG 140-200 - 35 units, BSG > 200 - 45 units * Bolus insulin * NovoLog per scale ACHS or Q6hrs while NPO * Goal Range: Low 110 mg/dL - High 140 mg/dL * Correction Factor: 15 mg/dL/unit * Nutritional / Prandial insulin per carb ratio of 1 unit per 5 grams CHO consumed
[2023-04-29] MEDS: PREGABALIN 150 MG CAP PO SCH ×2 (13:49→20:14)
[2023-04-29] MEDS: CLINDAMYCIN/D5W 600 MG/50 ML BAG IV SCH ×2 (15:13→23:40)
[2023-04-29] MEDS: oxyCODONE HCL IR 5 MG TAB (IMMEDIATE RELEASE) PO PRN ×2 (16:46→21:37)
[2023-04-29] MEDS: DOCUSATE SODIUM/SENNA 50/8.6MG TAB PO SCH (20:14)
[2023-04-29] MEDS: LORATADINE 10 MG TAB PO SCH (20:14)
[2023-04-29] MEDS: CHOLECALCIFEROL 1,000 UNITS 25 MCG TAB PO SCH (20:14)
[2023-04-29] MEDS: NIACIN 500 MG TAB PO SCH (20:14)
[2023-04-29] MEDS: ROSUVASTATIN CALCIUM 20 MG TAB PO SCH (20:14)
[2023-04-29] MEDS ORDERED: LANTUS PER UNIT CHARGE SC SCH (21:00)
[2023-04-30] MEDS: oxyCODONE HCL IR 5 MG TAB (IMMEDIATE RELEASE) PO PRN ×3 (03:50→19:45)
[2023-04-30] MEDS: POLYETHYLENE (MIRALAX) 17 GM PACK PO SCH ×3 (05:17→17:34)
[2023-04-30 06:06] LABS: Basophils # (auto) 0.01 K/uL (0-0.2); Basophils % (auto) 0.1 %; Eosinophils # (auto) 0.02 K/uL (0-0.50); Eosinophils % (auto) 0.3 %; Hematocrit (blood only) 36.6 % (37.0-47.0); Immature Granulocytes # (auto) 0.02 K/uL (0.01-0.20); Immature Granulocytes % (auto) 0.3 %; Lymphocytes # (auto) 1.05 K/uL (1.2-3.4); Mean Corpuscular Hemoglobin 29.6 pg (25.0-34.0); Mean Corpuscular Hgb Conc 32.8 g/dL (32.0-36.0); Mean Corpuscular Volume 90.4 fL (80.0-100.0); Mean Platelet Volume 10.6 fL (9.4-12.4); Monocytes # (auto) 0.63 K/uL (0.11-0.59); Monocytes % (auto) 8.4 %; Neutrophils # (auto) 5.78 K/uL (1.40-6.50); Neutrophils % (auto) 76.9 %; Platelet Count 152 K/uL (130-400); RDW Coefficient of Variation 13.4 % (11.5-14.5); RDW Standard Deviation 44.4 fL (36.4-46.3); Red Blood Count 4.05 M/uL (4.20-5.40); White Blood Count 7.51 K/ul (4.8-10.8)
[2023-04-30 06:12] LABS: BUN Creatinine Ratio 14.4 (10-20); Calcium 8.5 mg/dl (8.6-10.3); Creatinine Clr Calc Pharmacy 66.5 ml/min; Est GFR (African American) 77.8 ml/min; Est GFR (Non-African American) 67.1 ml/min
--- NOTE | 2023-04-30 08:23 | Orthopedic Progress Note ---
Date of Service April 30, 2023 Assessment & Plan (1) Neurogenic claudication due to lumbar spinal stenosis: Plan: This time initiate physical therapy monitor HOPE operatively discharge home next few days. Admission and Anticipated Discharge Date Admission Date: April 29, 2023 Subjective Back pain controlled leg pain markedly improved Physical Exam Physical Exam: Patient is in bed. He is comfortable. Specimen to testing. Results & Data Vital Signs (Past 12 Hours) Vital Signs Temp Pulse Resp BP Pulse Ox O2 Del Method 04/30/23 07:02 36.5 C 76 17 111/70 95 Room Air 04/30/23 03:42 36.8 C 80 18 101/67 94 Nasal Cannula 04/30/23 00:00 36.6 C 82 20 109/71 93 Nasal Cannula
[2023-04-30] MEDS: INSULIN ASPART PER UNIT CHARGE SC SCH ×4 (08:47→21:27)
[2023-04-30] MEDS ORDERED: lisinopril 2.5 MG TAB PO SCH (09:00)
[2023-04-30] MEDS: ASPIRIN 81 MG ECTAB PO SCH (09:14)
[2023-04-30] MEDS: PANTOprazole 40 MG TAB PO SCH (09:14)
[2023-04-30] MEDS: VENLAFAXINE HCL XR 75 MG CAPXR PO SCH (09:15)
[2023-04-30] MEDS: dexAMETHasone 6 MG in SYRINGE 0 ML IV SCH (09:15)
[2023-04-30] MEDS: DULoxetine HCL 60 MG CAP PO SCH (09:15)
[2023-04-30] MEDS: PREGABALIN 150 MG CAP PO SCH ×3 (09:17→21:30)
--- NOTE | 2023-04-30 14:47 | Hospitalist Progress Note ---
Date of Service April 30, 2023 Assessment & Plan (1) Neurogenic claudication due to lumbar spinal stenosis: (2) Diabetes mellitus: (3) HTN (hypertension): (4) Depression: (5) HLD (hyperlipidemia): Plan Patient is a 63 yr female with H/O DM II with long-term insulin use, HTN, HLD, GERD, depression who presents for elective lumbar decompression fusion by Dr. Frias. Neurogenic claudication due to lumbar spinal stenosis S/P L4-L5 lumbar decompression fusion by Dr. Frias on 04/29/23 Postoperative acute blood loss anemia No indication for transfusion Continue wound care Pain control PT OT continue bowel regimen to prevent constipation Continue Incentive spirometry, wean oxygen as able Monitor CBC DM II HbA1c February 2023 7.4 Glycemic pharmacy consulted Continue Lantus/NovoLog per protocol Also on Ozempic weekly (every Thursday) Monitor BGs HTN BP low Hold lisinopril for now Monitor Hyperlipidemia Continue statin Depression Continue Cymbalta DVT Px: Per primary Code Status FULL CODE Admission and Anticipated Discharge Date Admission Date: April 29, 2023 Subjective Patient is seen and examined at bedside Back pain at surgical site is controlled Denies any chest pain, dyspnea, dizziness, abdominal pain Nauseous earlier today but resolved later Review of Systems Review of Systems: All systems reviewed & are unremarkable except as noted in Subjective Physical Exam Physical Exam: Physical Exam: Vitals signs as noted above General Appearance:Moderately built and nourished, no apparent distress Head: normocephalic, Atraumatic Eyes: normal inspection, EOMI Neck: supple, Trachea midline Respiratory/Chest: Normal breath sounds, CTA, No accessory muscle use Cardiovascular: S1, S2, No murmur Abdomen/GI:Soft, Non tender, Bowel sounds present Back: Surgical site in dressing Extremities/Musculoskeletal:normal inspection, no edema Neurologic/Psych:AAOX3, grossly no focal neurological deficits Skin: normal color, warm Results & Data Results & Data Vital Signs (Past 12 Hours) Vital Signs Temp Pulse Resp BP Pulse Ox O2 Del Method O2 Flow Rate 04/30/23 11:13 36.7 C 90 17 127/73 93 Nasal Cannula 2 04/30/23 07:02 36.5 C 76 17 111/70 95 Room Air 04/30/23 03:42 36.8 C 80 18 101/67 94 Nasal Cannula Laboratory Results Short CBC 04/30/23 Range/Units 05:30 WBC 7.51 (4.8-10.8) K/ul Hgb 12.0 (12.0-16.0) g/dl Hct 36.6 L (37.0-47.0) % Plt Count 152 (130-400) K/uL [facility] 04/30/23 05:30 Sodium 136 Potassium 4.0 Chloride 104 Carbon Dioxide 27 BUN 13 Creatinine 0.90 Glucose 159 H Calcium 8.5 L
[2023-04-30] MEDS ORDERED: LANTUS PER UNIT CHARGE SC SCH (21:00)
[2023-04-30] MEDS: CHOLECALCIFEROL 1,000 UNITS 25 MCG TAB PO SCH (21:30)
[2023-04-30] MEDS: DOCUSATE SODIUM/SENNA 50/8.6MG TAB PO SCH (21:30)
[2023-04-30] MEDS: LORATADINE 10 MG TAB PO SCH (21:31)
[2023-04-30] MEDS: NIACIN 500 MG TAB PO SCH (21:31)
[2023-04-30] MEDS: ROSUVASTATIN CALCIUM 20 MG TAB PO SCH (21:31)
[2023-05-01] MEDS: POLYETHYLENE (MIRALAX) 17 GM PACK PO SCH ×3 (00:03→12:26)
[2023-05-01 06:50] LABS: Hematocrit (blood only) 33.2 % (37.0-47.0); Hemoglobin 10.9 g/dl (12.0-16.0); Mean Corpuscular Hemoglobin 29.4 pg (25.0-34.0); Mean Corpuscular Hgb Conc 32.8 g/dL (32.0-36.0); Mean Corpuscular Volume 89.5 fL (80.0-100.0); Mean Platelet Volume 10.8 fL (9.4-12.4); Platelet Count 151 K/uL (130-400); RDW Coefficient of Variation 13.5 % (11.5-14.5); RDW Standard Deviation 44.5 fL (36.4-46.3); Red Blood Count 3.71 M/uL (4.20-5.40); White Blood Count 8.22 K/ul (4.8-10.8)
[2023-05-01 07:06] LABS: Calcium 8.8 mg/dl (8.6-10.3); Creatinine Clr Calc Pharmacy 66.5 ml/min; Est GFR (African American) 77.8 ml/min; Est GFR (Non-African American) 67.1 ml/min; Potassium 3.9 mmol/L (3.5-5.1)
[2023-05-01] MEDS: VENLAFAXINE HCL XR 75 MG CAPXR PO SCH (08:13)
[2023-05-01] MEDS: dexAMETHasone 6 MG in SYRINGE 0 ML IV SCH (08:13)
[2023-05-01] MEDS: DULoxetine HCL 60 MG CAP PO SCH (08:13)
[2023-05-01] MEDS: ASPIRIN 81 MG ECTAB PO SCH (08:13)
[2023-05-01] MEDS: PANTOprazole 40 MG TAB PO SCH (08:13)
[2023-05-01] MEDS: PREGABALIN 150 MG CAP PO SCH (08:21)
[2023-05-01] MEDS: INSULIN ASPART PER UNIT CHARGE SC SCH ×2 (08:21→12:32)
[2023-05-01] MEDS ORDERED: LANTUS PER UNIT CHARGE SC ONE (09:00)
[2023-05-01] MEDS: oxyCODONE HCL IR 5 MG TAB (IMMEDIATE RELEASE) PO PRN ×2 (10:00→14:04)
--- NOTE | 2023-05-01 10:05 | Discharge Summary ---
Date of Service May 01, 2023 Admission HPI Per Admitting Provider This is a 63-year-old female who presents with chronic persistent back and leg pain after failing course of nonoperative care is here for surgical invention. Principal Diagnosis Lumbar spinal stenosis with neurogenic claudication Discharge Data Allergies Allergy/AdvReac Type Severity Reaction Status Date / Time Sulfa (Sulfonamide Allergy Mild Gastrointestinal Verified 04/29/23 06:28 Antibiotics) Upset Penicillins Allergy Unknown Hives Verified 04/29/23 06:28 Consultations 04/29/23 10:39 Consult Hospitalist Routine Procedures Performed Operation Date: 04/29/23 07:45 Actual Procedures p L4-L5 Decompression and Fusion, Spinal Cord Monitoring(Not Applicable) - Brett Frias DO Ordered Studies 04/29/23 07:45 [place] lumbar spine 2-3V Routine Hospital Course (1) Neurogenic claudication due to lumbar spinal stenosis: Patient underwent lumbar decompression fusion tolerated this well was taken to the orthopedic for postoperative. Postop day 1 she was up and ambulating breast postop day #2. HOPE drain decreasing appropriately. Excellent strength testing. Pain well controlled. Subsequently discharged home. Discharge orders instructions found in chart for further review. Total Time Total Time Spent Total Time Spent (In Minutes): 20 minutes Discharge Plan Discharge Items Patient Disposition: Home - Self-Care Reason For Visit: POSTOP Discharge Diagnosis: Lumbar spinal stenosis with neurogenic claudication Activity: As commented below Non-emergency contact: Primary Care Provider Call non-emergency contact if: you have any medication questions Follow-up/Referrals: Polly Herrera DO [Primary Care Provider] - Diet: Regular Addtl Attending Provider Instructions: ACTIVITY RECOMMENDATIONS: SELF CARE INSTRUCTIONS AFTER THORACIC/LUMBAR FUSIONS 1. You may walk to your tolerance. It is good exercise for your legs and back. Expect some back and intermittent leg aches and pains. 2. You may perform "counter-top" level activities (make a sandwich, fallon with a project, etc.). 3. No bending or lifting of more than 10 pounds or back twisting of any nature (roll like a log when turning in bed). 4. You may ride in a car for 20-30 minutes at a time. No driving until after your first visit with your doctor. 5. Frequent changes of position and restricting sitting to 30 minutes at a time will help limit the amount of back spasms and stiffness you may experience. 6. You may discontinue the use of ambulatory aids (cane, crutches, etc.) once your strength and confidence allow. 7. You may voice network engineer the shower and let water strike your incision when you arrive home at least once daily. Do not take a tub bath, sit in a hot tub or go into a swimming pool until after your first recheck in the office. SPECIAL CARE INSTRUCTIONS: VERY IMPORTANT TO READ AND REVIEW A. Your surgical incision has been closed with a cosmetic suture under the skin that will dissolve in about 6 weeks. In 14 days, you can use a pair of clean scissors and cut the suture that is left outside of the skin at the ends of your incision. 1. The small skin tapes can be removed 7 days after surgery if they have not fallen off by that point. 2. You may keep the wound open to air as much as possible to promote healing after post-op day number 5 unless told otherwise by your doctor. 3. If you think the wound looks like it is becoming infected (redness or worsening drainage) and/or you are experiencing fever, chill or worsening back pain and muscle spasms, contact the office so that we may evaluate you as soon as possible. B. Complications are uncommon, but please contact us if you have any signs or symptoms of: 1. wound infection (fever higher than 102.5 degrees F, redness, separation of wound, drainage, or increasing pain from the incision) 2. blood clots in legs (pain, swelling, redness and warmth in legs) 3. urinary tract infection (fever higher than 102.5 degrees F, burning upon urination or increased frequency of urination) 4. nerve problems (inability to walk on your toes or heels, numbness, loss of bowel or bladder control) 5. any other symptoms that concern you C. Please call the office at if you have any concerns or questions about your operation or recovery. D. No smoking! Smoking drastically decreases the chance of a solid fusion. E. Do not take any anti-inflammatory medications (Indocin, Advil, Motrin, Aspirin, Naprosyn, etc.) as these may inhibit the chance of a solid fusion. Tylenol is okay to take for pain. MANAGING PAIN AFTER SPINAL SURGERY 1. Narcotic medication is intended for short-term use and will be provided for surgical pain. Surgical pain usually lasts for a period of 4-6 weeks. Narcotic medication includes Percocet, Vicodin, Darvocet, Tylenol #3 or Lortab. 2. Longer-term pain is more appropriately treated with non-narcotic medication such as Tylenol ES. 3. Muscle spasm is not appropriately treated with narcotics. Muscle relaxers such as Soma, Flexeril or Skelaxin can be used along with Tylenol ES. 4. Remember that we all live with some "aches and pains". This is not unusual or uncommon after an injury or as we get older. a. Back pain is expected and may include muscle spasms for 4 to 6 weeks after surgery. The pain should gradually improve. If the pain worsens for no apparent reason, please contact the office. b. Intermittent leg pain may also be experienced and should not be concerned about unless it worsens for no apparent reason. If so, please contact the office. 5. We will provide appropriate medication within the normal guidelines of their prescribed use. We will also be very cautious and aware of potential abuse and extended duration of patients' medication needs. a. Pain medications are for your comfort and to assist with sleep and rest so that the tissue can heal. They are not provided in order to return to normal activity and should not be used through the day. To do so or worsening pain at night can result from ongoing tissue damage and development of tolerance to the prescribed medicine. 6. Please allow 2-3 days to process refills. Prescriptions will not be mailed but must be picked up at the office. FOLLOW UP VISIT: Keep your scheduled follow-up appointment. Any questions, please call the office at . Pending Studies at Discharge: No Stand-Alone Forms: My [facility] [email or web address], Smoking Cessation Medications and DC Order Prescriptions: New tramadol 50 mg tablet 50 mg PO Q6H PRN (Reason: pain, moderate) Qty: 30 0RF oxycodone 5 mg tablet 5 mg PO Q6H PRN (Reason: pain) Qty: 30 0RF Continued (DME) pen needle, diabetic [BD Ultra-Fine Micro Pen Needle] 32 gauge x 1/4" needle See Rx Instructions .ROUTE .MEDSUPPLY Qty: 50 Rx Instructions: As directed loratadine [Claritin] 10 mg tablet 10 mg PO HS Protonix [address] for susp in packet 40 mg PO QAM cholecalciferol (vitamin D3) 25 mcg (1,000 unit) capsule 25 mcg PO HS omega-3 fatty acids 1,000 mg capsule 1,000 mg PO HS aspirin 81 mg tablet,delayed release (DR/EC) 81 mg PO QAM niacin 500 mg tablet 500 mg PO HS Levemir FlexTouch U100 Insulin 100 unit/mL (3 mL) insulin pen 25 unit subcut HS Ozempic 0.25 mg or 0.5 mg(2 mg/1.5 mL) pen injector 0.5 mg subcut WK Rx Instructions: wednesdays rosuvastatin [Crestor] 40 mg tablet 40 mg PO HS duloxetine [Cymbalta] 60 mg capsule,delayed release(DR/EC) 60 mg PO QAM venlafaxine [Effexor XR] 75 mg capsule,extended release 24hr 75 mg PO QAM pregabalin 150 mg capsule 150 mg PO TID Qty: 90 2RF lisinopril 2.5 mg Tablet 2.5 mg PO QAM Discontinued diclofenac sodium 75 mg tablet,delayed release (DR/EC) 75 mg PO BID Qty: 60 5RF Discharge Orders: Discharge Order (Routine); Ordered 05/01/23 Ordered By: Brett Frias Admission Data Admit Date/Time: 04/29/23 09:13 Attending Provider: Brett Frias Admit Provider: Brett Frias Primary Care Provider: Polly Herrera Other Providers: Idalia Martini ; Yuriy Lawrence ; Venice Dennis
--- NOTE | 2023-05-01 13:12 | Hospitalist Progress Note ---
Date of Service May 01, 2023 Assessment & Plan (1) Neurogenic claudication due to lumbar spinal stenosis: (2) Diabetes mellitus: (3) HTN (hypertension): (4) Depression: (5) HLD (hyperlipidemia): Plan Patient is a 63 yr female with H/O DM II with long-term insulin use, HTN, HLD, GERD, depression who presents for elective lumbar decompression fusion by Dr. Frias. Neurogenic claudication due to lumbar spinal stenosis S/P L4-L5 lumbar decompression fusion by Dr. Frias on 04/29/23 Postoperative acute blood loss anemia No indication for transfusion Continue wound care Pain control PT OT continue bowel regimen to prevent constipation Continue Incentive spirometry, wean oxygen as able Monitor CBC Intermittent hypoxia A few episodes with O2 saturation <90% Underwent 2 step and maintained O2 saturation between 93-95% throughout the whole walk on room air DM II HbA1c February 2023 7.4 Glycemic pharmacy consulted Continue Lantus/NovoLog per protocol Also on Ozempic weekly (every Thursday) Monitor BGs HTN BP low Hold lisinopril for now Monitor Hyperlipidemia Continue statin Depression Continue Cymbalta DVT Px: Per primary Code Status FULL CODE I spent a total of 35 minutes coordinating, documenting, and providing care for this patient excluding time spent in the performance of separately billed services. Admission and Anticipated Discharge Date Admission Date: April 29, 2023 Supervising Physician Co-Signing Physician Notes Patient is seen and examined at bedside. Back pain at surgical site is controlled. States feeling well today. Offers no other complaints. Plan to be discharged home today. Lungs on examination are clear to auscultation. Surgical site in dressing. Continue wound care S/P lumbar decompression fusion surgery for neurogenic claudication of lumbar spinal stenosis. Can resume home medications for diabetes management. Can resume lisinopril for hypertension management. I personally reviewed the chart. I personally reviewed the record. Patient is interviewed and examined at bedside. Patient's care is coordinated with Venice Dennis PA-C. Please refer to the documentation above for details of patient's presentation and for discussion of other issues. Subjective Seen and examined in 301 sitting at the side of the bed. Pain well controlled, ambulating without issue. Using the restroom and urinating without issue, passing flatus but no postop bowel movement yet. Denies any chest pain, dyspnea, dizziness, abdominal pain. Had nausea yesterday that is since resolved. Informed by RN that patient having intermittent episodes of hypoxia that then returns to normal range on its own. Two-step ordered prior to discharge home. Review of Systems Review of Systems: At least ten systems reviewed and negative except as noted in the HPI. Physical Exam Physical Exam: Gen: WD/WN, NAD, sitting at side of bed, A&Ox3 HEENT: Normocephalic, atraumatic, conjunctivae moist, sclerae anicteric, mucous membranes moist Lung: Clear to Auscultation bilaterally, no wheezes/rales/rhonchi Heart: Regular rate, regular rhythm, no murmurs, rubs, or gallops Abdomen: Soft, NT, ND +BS x 4 Extremities: +spinal dressing c/d/i. HOPE drain visualized, no edema Skin: Warm, no rash Results & Data Results & Data Vital Signs (Past 12 Hours) Vital Signs Temp Pulse Pulse Pulse Pulse Pulse Resp 05/01/23 10:47 102 H 98 H 97 H 05/01/23 09:57 94 H 05/01/23 07:01 36.7 C 82 16 Resp Resp Resp BP Pulse Ox Pulse Ox Pulse Ox 05/01/23 10:47 20 16 15 95 94 05/01/23 09:57 94 05/01/23 07:01 115/70 96 Pulse Ox O2 Del Method O2 Flow Rate 05/01/23 10:47 93 05/01/23 09:57 Room Air 05/01/23 07:01 Nasal Cannula 2 Laboratory Results Short CBC 05/01/23 Range/Units 05:38 WBC 8.22 (4.8-10.8) K/ul Hgb 10.9 L (12.0-16.0) g/dl Hct 33.2 L (37.0-47.0) % Plt Count 151 (130-400) K/uL BMP 05/01/23 05:38 Sodium 137 Potassium 3.9 Chloride 102 Carbon Dioxide 30 BUN 18 Creatinine 0.90 Glucose 159 H Calcium 8.8 Diagnostic Findings Lumbar Spine X-Ray 04/29/23 07:45 INTRAOPERATIVE RADIOGRAPHS CLINICAL HISTORY: L4-L5 spinal fusion. Fluoro time: 13 seconds Ka,r: 9.86 mGy FINDINGS: 2 spot fluoroscopic views of the lumbar spine are presented. There has been discectomy at L4-L5 with laminectomy and posterior fusion at this level. Interpedicular screws are in place. The orthopedic hardware appears intact. IMPRESSION: Intraoperative images from lumbar spinal fusion surgery as above. Electronically signed by: Lasha Scott M.D. 04/29/2023 9:13 AM
== END 2023-05-01 14:31 | disposition home or self-care (01) | DRG 454 ==
LOC: ASU 06:01 → 3E 09:13